=== PATIENT | male | born 1965 | race Caucasian/White ===

== ENCOUNTER 2022-06-14 13:29 | Outpatient (CLI) | payer BC, SELFPAY | END 2022-06-14 13:30 | disposition home or self-care (01) | PROVIDERS: PCP Family Medicine; Visit Provider Family Medicine | DX: Z00.00 Encounter for general adult medical examination without abnormal findings (principal); Z11.3 Encounter for screening for infections with a predominantly sexual mode of transmission; Z12.5 Encounter for screening for malignant neoplasm of prostate; Z79.899 Other long term (current) drug therapy | CPT/HCPCS: 0353U; 80053; 80061; 86592; 86593; 86703; 87491; 87591 ==

== ENCOUNTER 2025-02-24 08:48 | Outpatient (CLI) | payer BC, SELFPAY | END 2025-02-24 08:49 | disposition home or self-care (01) | LOC: NFLDREF 02-28 06:21 | PROVIDERS: PCP Family Medicine; Referring Provider Family Medicine; Visit Provider Family Medicine | DX: N40.0 Benign prostatic hyperplasia without lower urinary tract symptoms (principal); Z13.1 Encounter for screening for diabetes mellitus; Z11.3 Encounter for screening for infections with a predominantly sexual mode of transmission; Z13.6 Encounter for screening for cardiovascular disorders | CPT/HCPCS: 80061; 82947; 86703; G0103 ==